=== PATIENT | female | born 1990 | race African-American/Black ===

== ENCOUNTER 2018-10-24 17:10 | Emergency (ER) | payer OTHER, SELFPAY ==
--- NOTE | 2018-10-24 18:24 | RAD REPORT ---
EXAM DESCRIPTION: CT - Head Brain Wo Cont - 10/24/2018 6:02 pm CLINICAL HISTORY: Headache COMPARISON: None. TECHNIQUE: Computed axial tomography of the head was obtained. IV contrast was not requested. All CT scans are performed using dose optimization technique as appropriate and may include automated exposure control or mA/KV adjustment according to patient size. FINDINGS: Right craniotomy. Small subdural chronic subdural hematoma along right frontal convexity w ith shift to the midline structures towards the left 2 mm. The ventricles are normal in caliber. No extra-axial fluid collection is noted. Fluid within the sinuses/ mastoids is not seen. IMPRESSION: Right craniotomy. Small chronic right subdural hematoma with shift of midline structure s to the 2 mm to the left
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
[2018-10-24] MEDS ORDERED: METOCLOPRAMIDE 10 MG/2mL INJ ONE (19:05)
[2018-10-24] MEDS ORDERED: NA CHLORIDE 0.9% 1,000 ML ONE (19:05)
[2018-10-24] MEDS ORDERED: DIPHENHYDRAMINE 50 MG/ML VIAL ONE (19:05)
[2018-10-24 20:00] LABS: BUN Blood Urea Nitrogen 12 mg/dL (7-18); Bicarbonate 24 mmol/L (21-32); Glucose Level 76 mg/dL (74-106); Potassium 3.7 mmol/L (3.5-5.1); Sodium Level 138 mmol/L (136-145)
[2018-10-24 20:01] LABS: ALT/SGPT 18 U/L (12-78); AST/SGOT 13 U/L (15-37); Albumin 3.9 g/dL (3.4-5.0); Alkaline Phosphatase 77 U/L (45-117); Bilirubin Total 0.3 mg/dL (0.2-1.0); Protein, Total 8.7 g/dL (6.4-8.2)
[2018-10-24 20:39] LABS: Absolute Lymphocytes (CBC) 5.2 K/uL (0.7-4.9); Basophils % 0.7 % (0-1.3); Hematocrit 27.6 % (36.0-45.0); Lymphocytes % 59.6 % (15.3-44.8); MPV 8.7 fL (7.6-11.3); RBC Red Blood Cell Count 4.92 M/uL (3.86-4.86)
[2018-10-24 20:46] LABS: Platelet Estimate INCR
[2018-10-24 20:47] LABS: Blood Morphology Comment NOTED (NOT SEEN)
[2018-10-24 20:48] LABS: Anisocytosis 2+; Hypochromasia 3+; Poikilocytosis 1+; Polychromasia 1+
[2018-10-24 22:31] VITALS: TEMP 98.5; O2SAT 100
[2018-10-24 22:48] VITALS: BP 121/75
== END 2018-10-24 20:24 | disposition short-term general hospital (02) ==
LOC: ER 17:10
DX: I62.00 Nontraumatic subdural hemorrhage, unspecified (principal); Z98.890 Other specified postprocedural states; F17.210 Nicotine dependence, cigarettes, uncomplicated
CPT/HCPCS: 36415; 70450; 80053; 85025; 96361; 96374; 96375; 99285; J2765; J7030